=== PATIENT | male | born 1985 | race Caucasian/White ===

== ENCOUNTER 2016-11-07 11:38 | Emergency (ER) | payer SELFPAY ==
[~2016-11-07 11:38] MED LIST: KETOPROFEN PO; NO MEDICATIONS; PHENERGAN25 MG PO
== END 2016-11-07 12:42 | disposition home or self-care (01) ==
LOC: SED 11:38
DX: L73.9 Follicular disorder, unspecified (principal); Z90.49 Acquired absence of other specified parts of digestive tract; F17.200 Nicotine dependence, unspecified, uncomplicated
CPT/HCPCS: 99282